=== PATIENT | female | born 2000 | race Caucasian/White ===

== ENCOUNTER 2020-04-24 12:24 | Emergency (ER) | payer MEDICAID, SELFPAY ==
[2020-04-24 12:31] VITALS: BP 160/104; PULSE 121; RESP 20; TEMP 36.9; O2SAT 99; BMI 40.6
--- NOTE | 2020-04-24 12:52 | ED_ITS ---
HPI - Abdominal Pain General: Chief Complaint: Abdominal Pain Stated Complaint: stomach pains Time Seen by Provider: 04/24/20 12:31 History of Present Illness: HPI narrative: 19-year-old female comes in complaining of abdominal pain x3 weeks. She has pain in left upper quadrant left side of her abdomen radiating down to the suprapubic area. There is a potential that she is she is several weeks late for her period and is has regular unprotected intercourse. She denies dysuria urgency or frequency is no fever she denies hematuria she has been moderately nauseous with this as well. Patient is G1, P0 SAB 1 MD elicited complaint: flank pain Pertinent past history: none Onset (ago): week(s) (3) Pain Consistency: intermittent Location: L flank Severity: moderate Quality: cramping and stabbing Radiation: suprapubic Migration to: suprapubic Exacerbating factors: nothing Relieving factors: nothing Associated Symptoms: Reports no associated symptoms and GI cramping; Denies anorexia, belching, bloating, change in bowel habits, change in stool character, chills, coffee ground emesis, constipation, diarrhea, dyspepsia, dysuria, excessive flatus, fever(s), heartburn, hematochezia, hematuria, hematemesis, fecal incontinence, loose stools, melena, nausea, poor appetite, syncope and vomiting Related Data: Date of Last Menstrual Period: 02/21/20 Review of Systems Const: Denies: fever(s) or chills ENMT: Denies: throat pain, ear or mastoid pain, nasal discharge or nasal congestion Card: Denies: syncope Resp: Denies: dyspnea, productive cough or non-productive cough GI: Reports: GI cramping; Denies: nausea, vomiting, hematemesis, coffee ground emesis, heartburn, diarrhea, constipation, bloating, belching, excessive flatus, fecal incontinence, change in bowel habits, change in stool character, hematochezia or melena : Denies: dysuria or hematuria Skin/Breast: Denies: rash or pruritus PFSH ED PFSH: Medical History (Updated 04/24/20 @ 12:57 by Abdi Fuentes DO) Strabismus Surgical History (Updated 04/24/20 @ 12:57 by Abdi Fuentes DO) History of elective History of tonsillectomy and adenoidectomy [place] teeth extracted Social History (Updated 04/24/20 @ 12:57 by Abdi Fuentes DO) Smoking and tobacco status: current every day smoker Substance/Drug Use: current Substance/Drug use frequency: daily Substance/Drug use type: Marijuana Female Reproductive History: Date of last menstrual period: 02/21/20 Physical Exam Const: COMMON NORMALS: no acute distress GENERAL APPEARANCE: cooperative and comfortable ORIENTATION/CONSCIOUSNESS: Yes awake, Yes oriented to person, Yes oriented to place and Yes oriented to time HENMT: COMMON NORMALS: normocephalic, atraumatic, hearing grossly normal bilaterally, external ears normal, EAC's normal, TM's normal bilaterally, Normal nasal mucous membranes and turbinates present, moist oral mucous membranes and oropharynx normal HEAD & SCALP: normocephalic and atraumatic NOSE: Normal nasal mucous membranes and turbinates present EXTERNAL EAR: Yes external ears normal EXTERNAL AUDITORY CANAL: EAC's normal TYMPANIC MEMBRANE: TM's normal bilaterally Eye: COMMON NORMALS: Equal, round and reactive pupils present, EOMs intact bilaterally, conjunctivae normal and no scleral icterus CONJUNCTIVA: Yes conjunctivae normal PUPIL: Yes Equal, round and reactive pupils present Neck/C-Spine: COMMON NORMALS: full ROM, no lymphadenopathy, supple and no JVD Lymph: LYMPHATIC: no lymphadenopathy noted and no lymphedema noted Resp: COMMON NORMALS: normal respiratory effort, No retractions, No use of accessory muscles and clear to auscultation bilaterally AUSCULTATION: clear to auscultation bilaterally Cardio: COMMON NORMALS: no JVD, regular rate, regular rhythm and No murmurs present (Cardio) RATE: regular rate RHYTHM: regular rhythm GI: PALPATION: Yes Tenderness to palpation present (GI) Details: LUQ and No Guarding due to palpation present (GI) Extremity: COMMON NORMALS: normal to inspection, capillary refill normal, no clubbing, cyanosis or edema, no calf tenderness and no pedal edema Neuro: SENSORIUM/ORIENTATION: Yes oriented to person, Yes oriented to place and Yes oriented to time Skin: COMMON NORMALS: no rashes or lesions noted GENERAL SKIN EXAM: no rashes or lesions noted Course Vital Signs: Vital signs: Vital Signs Temperature 98.5 F 04/24/20 12:31 Pulse Rate 121 H 04/24/20 12:31 Respiratory Rate 20 H 04/24/20 12:31 Blood Pressure 160/104 04/24/20 12:31 Pulse Oximetry 99 04/24/20 12:31 MDM - Abdominal Pain MDM Narrative: Medical decision making narrative: Patient refused further exam and evaluation. Beta-hCG was negative and will reset to have a CT done given her elevated white count and her other symptoms. She adamantly refused stating that she was very anxious and wanted to leave. Offered her antianxiety medications discussed with her that we could not be entirely sure what was wrong and recommended that she stay until we get further testing completed. She is adamant about leaving. Despite offers for the anxiety medication she still decided leave AMA discussed with her that since we were not sure what exactly was causing her symptoms we could not be sure that they were not something more serious. She acknowledges that and still wishes to leave. Advised her she was welcome to return at any point if she changed her mind. Lab Data: Labs: Lab Results 04/24/20 04/24/20 04/24/20 Range/Units 12:44 12:44 13:10 WBC 14.0 H (4.5-13.0) 10^3/ uL RBC 5.68 H (4.1-5.3) 10^6/u L Hgb 13.7 (11.5-15.3) g/dL Hct 42.6 (37.0-47.0) % MCV 75.0 L (81-99) fL MCH 24.1 L (28.0-34.0) pg MCHC 32.2 (30.0-36.0) g/dL RDW 14.6 (12.1-15.1) % Plt Count 466 H (130-400) 10^3/c mm MPV 9.6 (7.4-10.4) fL Neut % (Auto) 67.5 % Lymph % (Auto) 21.6 % [place] % (Auto) 6.9 % Eos % (Auto) 3.2 % Baso % (Auto) 0.4 % Neut # (Auto) 9.41 H (1.8-8.0) 10^3/u L Lymph # (Auto) 3.0 (1.5-6.5) 10^3/u L [place] # (Auto) 1.0 H (0.2-0.9) 10^3/u L Eos # (Auto) 0.5 (0.0-0.8) 10^3/u L Baso # (Auto) 0.1 (0.0-0.1) 10^3/u L Nucleated RBC % (a uto) 0 % Nucleated RBCs # 0.0 /100WBC Sodium (136-145) mmol/L Potassium (3.5-5.1) mmol/L Chloride (98-107) mmol/L Carbon Dioxide (22-29) mmol/L Anion Gap (5-19) BUN (6-20) mg/dL Creatinine (0.5-0.9) mg/dL GFR Calculation (90-130) mL/min Glucose (65-115) mg/dL Calculated Osmolal ity (285-295) mOsm/k g Calcium (8.5-10.5) mg/dL Total Bilirubin (0.15-1.2) mg/dL AST (0-32) U/L ALT (0-33) U/L Alkaline Phosphata se (35-105) IU/L Total Protein (6.6-8.7) g/dL Albumin (3.5-5.2) g/dL Globulin (1.3-4.6) g/dL Lipase (13-60) U/L HCG, Qual Negative (Negative) Urine Color Yellow (Yellow) Urine Appearance Clear (CLEAR) Urine pH 5 (5-7) Ur Specific Gravit y 1.020 (1.005-1.030) Urine Protein Neg (Negative) Urine Glucose (UA) Norm (Normal) Urine Ketones Negative (Negative) Urine Blood Neg (Negative) Urine Nitrate Negative (Negative) Urine Bilirubin Neg (Negative) Urine Urobilinogen Norm (Negative) mg/dL Ur Leukocyte Renetta ase Negative (Negative) 04/24/20 Range/Units 13:10 WBC (4.5-13.0) 10^3/ uL RBC (4.1-5.3) 10^6/u L Hgb (11.5-15.3) g/dL Hct (37.0-47.0) % MCV (81-99) fL MCH (28.0-34.0) pg MCHC (30.0-36.0) g/dL RDW (12.1-15.1) % Plt Count (130-400) 10^3/c mm MPV (7.4-10.4) fL Neut % (Auto) % Lymph % (Auto) % [place] % (Auto) % Eos % (Auto) % Baso % (Auto) % Neut # (Auto) (1.8-8.0) 10^3/u L Lymph # (Auto) (1.5-6.5) 10^3/u L [place] # (Auto) (0.2-0.9) 10^3/u L Eos # (Auto) (0.0-0.8) 10^3/u L Baso # (Auto) (0.0-0.1) 10^3/u L Nucleated RBC % (a uto) % Nucleated RBCs # /100WBC Sodium 134 L (136-145) mmol/L Potassium 4.1 (3.5-5.1) mmol/L Chloride 103 (98-107) mmol/L Carbon Dioxide 19 L (22-29) mmol/L Anion Gap 16.1 (5-19) BUN 6 (6-20) mg/dL Creatinine 0.5 (0.5-0.9) mg/dL GFR Calculation 158.9 H (90-130) mL/min Glucose 108 (65-115) mg/dL Calculated Osmolal ity 276 L (285-295) mOsm/k g Calcium 9.3 (8.5-10.5) mg/dL Total Bilirubin 0.2 (0.15-1.2) mg/dL AST 18 (0-32) U/L ALT 24 (0-33) U/L Alkaline Phosphata se 111 H (35-105) IU/L Total Protein 7.6 (6.6-8.7) g/dL Albumin 4.4 (3.5-5.2) g/dL Globulin 3.2 (1.3-4.6) g/dL Lipase 12 L (13-60) U/L HCG, Qual (Negative) Urine Color (Yellow) Urine Appearance (CLEAR) Urine pH (5-7) Ur Specific Gravit y (1.005-1.030) Urine Protein (Negative) Urine Glucose (UA) (Normal) Urine Ketones (Negative) Urine Blood (Negative) Urine Nitrate (Negative) Urine Bilirubin (Negative) Urine Urobilinogen (Negative) mg/dL Ur Leukocyte Renetta ase (Negative) Discharge Plan Discharge Patient Disposition: Left Against Medical Advice Prescriptions: No Action Tylenol 325 mg Tablet 325 mg PO QID PRN (Reason: FEVER/PAIN) RF: 0 ibuprofen 200 mg Tablet 200 - 400 mg PO Q6H PRN (Reason: PAIN/FEVER) RF: 0 Discharge Date/Time: 04/24/20 13:28 Coding Level of Care Code 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
[2020-04-24 12:53] LABS: Add Urine Microscopic? NO
[2020-04-24 12:58] LABS: HCG Qualitative Urine. Negative (Negative)
[2020-04-24 12:59] LABS: Bilirubin Urine Neg (Negative); Blood Urine Neg (Negative); Glucose Urine UA Norm (Normal); Ketones Urine Negative (Negative); Leukocyte Esterase Urine Negative (Negative); Nitrate Urine Negative (Negative); Protein Urine Neg (Negative); Urine Appearance Clear (CLEAR); Urine Color Yellow (Yellow); Urobilinogen Urine Norm (Negative); pH Urine 5 (5-7)
[2020-04-24] MEDS: ondansetron 2 mg/ML SDV 2 mL 4 MG IVP (13:11)
[2020-04-24] MEDS: sodium chlor 0.9% + KCl 20 mEq 20 MEQ/1,000 ML BAG 125 MEQ IV (13:12)
[2020-04-24 13:17] LABS: Basophils # 0.1 10^3/uL (0.0-0.1); Basophils % 0.4 %; Eosinophils # 0.5 10^3/uL (0.0-0.8); Eosinophils % 3.2 %; Hematocrit 42.6 % (37.0-47.0); Hemoglobin 13.7 g/dL (11.5-15.3); Lymphocytes % 21.6 %; Mean Corpuscular HGB Conc 32.2 g/dL (30.0-36.0); Mean Corpuscular Hemoglobin 24.1 pg (28.0-34.0); Mean Platelet Volume 9.6 fL (7.4-10.4); Monocytes % 6.9 %; Neutrophils # 9.41 10^3/uL (1.8-8.0); Neutrophils % 67.5 %; Nucleated Red Blood Cells % 0 %; Platelet Count 466 10^3/cmm (130-400); Red Blood Count 5.68 10^6/uL (4.1-5.3); Red Cell Distribution Width 14.6 % (12.1-15.1)
[2020-04-24 13:35] LABS: Alanine Aminotransferase 24 U/L (0-33); Albumin Level 4.4 g/dL (3.5-5.2); Alkaline Phosphatase 111 IU/L (35-105); Anion Gap 16.1 (5-19); Aspartate Amino Transferase 18 U/L (0-32); Blood Urea Nitrogen 6 mg/dL (6-20); Calcium 9.3 mg/dL (8.5-10.5); Carbon Dioxide 19 mmol/L (22-29); Chloride 103 mmol/L (98-107); Globulin 3.2 g/dL (1.3-4.6); Glomerular Filtration Rate 158.9 mL/min (90-130); Glucose 108 mg/dL (65-115); Lipase 12 U/L (13-60); Osmolality Calculated 276 mOsm/kg (285-295); Potassium 4.1 mmol/L (3.5-5.1); Sodium 134 mmol/L (136-145); Total Bilirubin 0.2 mg/dL (0.15-1.2); Total Protein 7.6 g/dL (6.6-8.7)
== END 2020-04-24 13:28 | disposition left against medical advice (07) ==
PROVIDERS: Emergency Provider Family Medicine
DX: R10.9 Unspecified abdominal pain (principal); Z53.21 Procedure and treatment not carried out due to patient leaving prior to being seen by health care provider; F17.210 Nicotine dependence, cigarettes, uncomplicated
CPT/HCPCS: 12345; 80053; 81003; 81025; 83690; 85025; 96365; 96375; 99282; 99283; J2405

== ENCOUNTER 2020-10-19 12:21 | Outpatient (CLI) | payer MEDICAID, SELFPAY ==
--- NOTE | 2020-10-19 12:31 | XR_ITS ---
WS: [id number] XR chest 2V* [id number] REASON FOR EXAM: R07.89 - Other chest pain FINDINGS: The chest is unchanged compared to previous examination of 09/04/2015. The heart and mediastinum are within normal limits. No active pulmonary parenchymal or pleural disease noted. No significant abnormality of the bony thorax. XR/XR chest 2V* [id number] IMPRESSION: No significant abnormality of the chest.
[2020-10-19 13:08] LABS: Basophils % 0.4 %; Eosinophils # 0.4 10^3/uL (0.0-0.8); Eosinophils % 3.4 %; Hematocrit 42.5 % (37.0-47.0); Hemoglobin 13.4 g/dL (11.5-15.3); Lymphocytes # 2.6 10^3/uL (1.5-6.5); Lymphocytes % 24.1 %; Mean Corpuscular HGB Conc 31.5 g/dL (30.0-36.0); Mean Corpuscular Hemoglobin 23.8 pg (28.0-34.0); Mean Corpuscular Volume 75.6 fL (81-99); Mean Platelet Volume 9.9 fL (7.4-10.4); Monocytes # 0.8 10^3/uL (0.2-0.9); Monocytes % 7.6 %; Neutrophils # 6.87 10^3/uL (1.8-8.0); Neutrophils % 64.2 %; Nucleated Red Blood Cells % 0 %; Platelet Count 467 10^3/cmm (130-400); Red Blood Count 5.62 10^6/uL (4.1-5.3); Red Cell Distribution Width 14.9 % (12.1-15.1); White Blood Count 10.7 10^3/uL (4.5-13.0)
[2020-10-19 13:30] LABS: Alanine Aminotransferase 17 U/L (0-33); Albumin Level 4.5 g/dL (3.5-5.2); Alkaline Phosphatase 104 IU/L (35-105); Aspartate Amino Transferase 15 U/L (0-32); Blood Urea Nitrogen 7 mg/dL (6-20); Calcium 9.6 mg/dL (8.5-10.5); Carbon Dioxide 23 mmol/L (22-29); Chloride 105 mmol/L (98-107); Globulin 3.1 g/dL (1.3-4.6); Glomerular Filtration Rate 203.5 mL/min (90-130); Glucose 113 mg/dL (65-115); Osmolality Calculated 287 mOsm/kg (285-295); Sodium 139 mmol/L (136-145); Total Bilirubin 0.2 mg/dL (0.15-1.2); Total Protein 7.6 g/dL (6.6-8.7)
[2020-10-19 13:44] LABS: D Dimer <= 0.27 ug/mIFEU (0-0.59)
== END 2020-10-19 12:22 | disposition home or self-care (01) ==
PROVIDERS: Visit Provider Nurse Practitioner Family
DX: R07.89 Other chest pain (principal); R05 Cough
CPT/HCPCS: 36415; 71046; 80053; 85025; 85378

== ENCOUNTER → 2020-10-25 08:06 | Outpatient (BNVA) | payer MEDICAID, SELFPAY | PROVIDERS: Visit Provider Nurse Practitioner Family | DX: R05 Cough (principal); R07.89 Other chest pain | CPT/HCPCS: 80053; 85025; 85379 ==

== ENCOUNTER → 2020-12-29 16:27 | Outpatient (BNVA) | payer MEDICAID, SELFPAY | PROVIDERS: Visit Provider Nurse Practitioner Family | DX: G47.9 Sleep disorder, unspecified (principal); N92.6 Irregular menstruation, unspecified | CPT/HCPCS: 81025 ==

== ENCOUNTER 2021-07-23 06:55 | Outpatient (CLI) | payer MEDICAID, SELFPAY ==
--- NOTE | 2021-07-23 07:08 | US_ITS ---
WS: [id number] ULTRASOUND PELVIS TECHNIQUE: Transvaginal. CLINICAL INFORMATION: IRREGULAR MENSES LMP: : No. COMPARISON: None. FINDINGS: Uterus Orientation: Anteverted. Size: 7.5 x 2.7 x 4.1 Masses: None. Cervix: Trace fluid Endometrium: Normal. Endometrium thickness: 3.9 mm. Adnexa: Multifollicular ovaries bilaterally Right ovary size: 3.7 x 3.7 x 1.7 cm. Left ovary size: 3.3 x 2.5 x 3.4 cm. Free fluid: Trace Other findings: None. US/US transvaginal [id number] IMPRESSION: 1. Normal uterus with normal endometrium measuring 3.9 mm. 2. Multifollicular ovaries bilaterally nonspecific. Right ovarian volume 12.3 cc and left ovarian volume 15.6 cc. Findings can be seen with PCOS in the appro priate clinical setting. 3. Trace fluid about each ovary and in the cul-de-sac. 4. Small amount of fluid in the cervix.
== END 2021-07-23 06:56 | disposition home or self-care (01) ==
LOC: RAD 06:58
PROVIDERS: PCP Pediatrics; Visit Provider Family Medicine
DX: N92.6 Irregular menstruation, unspecified (principal)
CPT/HCPCS: 76830

== ENCOUNTER 2022-11-02 04:32 | Emergency (ER) | payer MEDICAID, SELFPAY ==
[2022-11-02 04:41] VITALS: BP 142/75; PULSE 94; RESP 22; TEMP 36.9; O2SAT 99; BMI 45.3
--- NOTE | 2022-11-02 04:49 | ECG_ITS ---
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 Measurements Intervals [place] Rate: 92 P: 44 AL: 175 QRS: -20 QRSD: 126 T: 19 QT: 357 QTc: 442 Interpretive Statements SINUS RHYTHM RIGHT BUNDLE BRANCH BLOCK [120+ ms QRS DURATION, UPRIGHT V1, 40+ ms S IN I/aVL/V4/V5/V6] INTERPRETATION BASED ON A DEFAULT AGE OF 40 YEARS Compared to ECG 09/04/2015 17:23:31 Sinus tachycardia no longer present Electronically Signed On 11-02-2022 7:12:13 CDT by Chacorta Perkins M.D. [id number]
--- NOTE | 2022-11-02 04:53 | XRR_ITS ---
PROCEDURE INFORMATION: Exam: XR Chest Exam date and time: 11/02/2022 5:05 AM Age: 22 years old Clinical indication: Pain; Chest pressure; Additional info: Cp TECHNIQUE: Imaging protocol: Radiologic exam of the chest. Views: 1 view. COMPARISON: CR XR chest 2V* [id number] 10/19/2020 12:42 PM FINDINGS: Lungs: No consolidation. Pleural spaces: No pleural effusion. No pneumothorax. Heart/Mediastinum: Heart size is at the upper limits of normal. Bones/joints: No acute fracture. XR/XR chest 1V portable [id number] IMPRESSION: No acute cardiopulmonary findings.
[2022-11-02 05:15] LABS: Basophils # 0.1 10^3/uL (0.0-0.1); Basophils % 0.5 %; Eosinophils # 0.5 10^3/uL (0.0-0.8); Hematocrit 43.9 % (37.0-47.0); Hemoglobin 14.1 g/dL (11.5-15.3); Lymphocytes % 28.4 %; Mean Corpuscular HGB Conc 32.1 g/dL (30.0-36.0); Mean Corpuscular Hemoglobin 24.3 pg (28.0-34.0); Mean Corpuscular Volume 75.7 fl (81-99); Mean Platelet Volume 10.2 fL (7.4-10.4); Monocytes # 1.5 10^3/uL (0.2-0.9); Monocytes % 8.4 %; Neutrophils # 10.44 10^3/uL (1.8-7.7); Neutrophils % 59.4 %; Nucleated Red Blood Cells % 0 %; Platelet Count 478 10^3/cmm (130-400); Red Cell Distribution Width 14.4 % (12.1-15.1); White Blood Count 17.6 10^3/uL (4.0-10.0)
[2022-11-02 05:18] LABS: D Dimer 0.28 ug/mIFEU (0-0.59)
--- NOTE | 2022-11-02 05:20 | W.ED.ANXIETY ---
HPI - Anxiety General: Chief Complaint: Anxiety Stated Complaint: chest and right shoulder pain, sob Time Seen by Provider: 11/02/22 04:47 History of Present Illness: 22-year-old with chronic right shoulder pain after an injury last year. She woke with it hurting. This progressed to right-sided then bilateral chest discomfort. She says it hurts to exhale. She feels like she cannot get a good breath in or out. She went and took a bath, and symptoms of the chest seem to get worse. She tried to call out for her but could not because she could not catch enough breath. She says that since this is happened, she has developed a cough, but was not coughing prior. No long car trips. No fever. MD complaint: anxiety and shortness of breath Onset (ago): hour(s) Symptoms: chest pain Severity: moderate Quality: constant Place: home History of similar episodes: No Provoking factors: none known Relieving factors: nothing Exacerbating factors: thinking about event Associated symptoms: Reports chest pain, diaphoresis, headache(s), nausea, short of breath and vomiting; Deny chills, confusion or fever(s) Review of Systems Const: Reports: diaphoresis; Denies: fever(s) or chills ENMT: Denies: throat pain Card: Reports: chest pain Resp: Reports: dyspnea and non-productive cough GI: Reports: nausea and vomiting; Denies: abdominal pain : Denies: flank pain Neuro: Reports: headache(s); Denies: confusion Psych: Reports: anxiety PFS ED PFSH: Medical History Strabismus Surgical History History of elective History of tonsillectomy and adenoidectomy [place] teeth extracted Social History Smoking and tobacco status: current every day smoker Physical Exam Const: COMMON NORMALS: patient oriented x3, alert and well nourished GENERAL APPEARANCE: cooperative, in distress and anxious; not ill appearing NUTRITIONAL APPEARANCE: obese HENMT: COMMON NORMALS: normocephalic, atraumatic and Normal external nose present HEAD & SCALP: normocephalic and atraumatic FACE & SINUS: normal facial exam and face symmetric NOSE: Normal external nose present Eye: COMMON NORMALS: Equal, round and reactive pupils present and EOMs intact bilaterally PUPIL: Yes Equal, round and reactive pupils present Neck/C-Spine: COMMON NORMALS: full ROM GENERAL: Yes trachea midline Chest: CHEST: Yes Symmetrical chest wall rise and Yes tenderness (anterior bilateral) Resp: COMMON NORMALS: normal respiratory effort, No retractions, No use of accessory muscles and clear to auscultation bilaterally AUSCULTATION: clear to auscultation bilaterally Cardio: COMMON NORMALS: regular rate, regular rhythm, S1 normal heart sound present and S2 normal heart sound present RATE: regular rate RHYTHM: regular rhythm HEART SOUNDS: S1 normal heart sound present and S2 normal heart sound present GI: COMMON NORMALS: Normal to inspection, nondistended, normoactive bowel sounds present Back/Pelvis: LUMBAR SPINE/LOWER BACK: Yes normal to inspection, Yes pain with ROM and Yes paraspinal muscle tenderness Lumbar paraspinal muscle tenderness: bilateral Extremity: COMMON NORMALS: normal to inspection, full ROM, no clubbing, cyanosis or edema and no calf tenderness Neuro: [place] COMA SCALE: document GCS findings [place] coma scale eye opening: Spontaneous [place] coma scale verbal response: Orientated [place] coma scale motor response: [place] commands [place] coma scale total score: 15 COMMON NORMALS: patient oriented x3 SENSORIUM/ORIENTATION: Yes alert GAIT: Yes Antalgic gait present (slow) SENSORY EXAM: Yes extremities (intact) Psych: COMMON NORMALS: speech normal SPEECH: Yes normal speech MOOD & AFFECT: Yes tearful Skin: COMMON NORMALS: no rashes or lesions noted GENERAL SKIN EXAM: no rashes or lesions noted Course Vital Signs: Vital signs: Vital Signs Temperature 98.5 F 11/02/22 04:41 Pulse Rate 94 11/02/22 04:41 Respiratory Rate 22 H 11/02/22 04:41 Blood Pressure 142/75 11/02/22 04:41 Pulse Oximetry 99 11/02/22 04:41 MDM - Anxiety Medical Decision Making Patient is very anxious on exam. She is given morphine for pain, and Haldol for nausea and anxiety. This is improved. Chest x-ray is negative. White blood cell count is 17.6, but with only 59% neutrophils. D-dimer is negative. Other laboratories pending. The patient's EKG shows a sinus rhythm. [place] is normal. There is a right bundle branch block. No ST changes. Rate is 90. No other interval abnormalities. Her troponin is negative. Other laboratory is normal. The patient received morphine and haloperidol for pain and nausea. She now states that her pain is gone. Her shortness of breath is resolved. She states I am hot, and I want to go home and sleep in my own bed . Given her laboratory findings, this is most likely an anxiety event. We will allow her home. Lab Data 11/02/22 04:57 11/02/22 04:57 Radiology Impressions Chest X-Ray 11/02/22 04:53 IMPRESSION: No acute cardiopulmonary findings. Laboratory Results WBC 17.6 10^3/uL (4.0-10.0) H 11/02/22 04:57 RBC 5.80 10^6/uL (4.1-5.3) H 11/02/22 04:57 Hgb 14.1 g/dL (11.5-15.3) 11/02/22 04:57 Hct 43.9 % (37.0-47.0) 11/02/22 04:57 MCV 75.7 fl (81-99) L 11/02/22 04:57 MCH 24.3 pg (28.0-34.0) L 11/02/22 04:57 MCHC 32.1 g/dL (30.0-36.0) 11/02/22 04:57 RDW 14.4 % (12.1-15.1) 11/02/22 04:57 Plt Count 478 10^3/cmm (130-400) H 11/02/22 04:57 MPV 10.2 fL (7.4-10.4) 11/02/22 04:57 Neut % (Auto) 59.4 % 11/02/22 04:57 Lymph % (Auto) 28.4 % 11/02/22 04:57 [place] % (Auto) 8.4 % 11/02/22 04:57 Eos % (Auto) 3.0 % 11/02/22 04:57 Baso % (Auto) 0.5 % 11/02/22 04:57 Neut # (Auto) 10.44 10^3/uL (1.8-7.7) H 11/02/22 04:57 Lymph # (Auto) 5.0 10^3/uL (0.8-4.8) H 11/02/22 04:57 [place] # (Auto) 1.5 10^3/uL (0.2-0.9) H 11/02/22 04:57 Eos # (Auto) 0.5 10^3/uL (0.0-0.8) 11/02/22 04:57 Baso # (Auto) 0.1 10^3/uL (0.0-0.1) 11/02/22 04:57 Nucleated RBC % (auto) 0 % 11/02/22 04:57 Nucleated RBCs # 0.0 /100WBC 11/02/22 04:57 D-Dimer 0.28 ug/mIFEU (0-0.59) 11/02/22 04:57 Sodium 136 mmol/L (136-145) 11/02/22 04:57 Potassium 4.0 mmol/L (3.5-5.1) 11/02/22 04:57 Chloride 105 mmol/L (98-107) 11/02/22 04:57 Anion Gap 17.0 (5-19) 11/02/22 04:57 BUN 8 mg/dL (6-20) 11/02/22 04:57 Creatinine 0.5 mg/dL (0.5-0.9) 11/02/22 04:57 Glucose 97 mg/dL (65-115) 11/02/22 04:57 Calcium 9.3 mg/dL (8.5-10.5) 11/02/22 04:57 Total Bilirubin 0.3 mg/dL (0.15-1.2) 11/02/22 04:57 AST 14 U/L (0-32) 11/02/22 04:57 ALT 16 U/L (0-33) 11/02/22 04:57 Alkaline Phosphatase 86 U/L (35-105) 11/02/22 04:57 Troponin T Gen 5 ng/L 6 ng/L (0-10) 11/02/22 04:57 NT-Pro-B Natriuret Pep 36 pg/mL (0-125) 11/02/22 04:57 Total Protein 7.0 g/dL (6.6-8.7) 11/02/22 04:57 Albumin 4.4 g/dL (3.5-5.2) 11/02/22 04:57 Globulin 2.6 g/dL (1.3-4.6) 11/02/22 04:57 Discharge Plan Discharge Patient Disposition: Home Clinical Impression: Chest pain, Hyperventilation Condition: Stable Prescriptions: No Action diclofenac potassium 50 mg tablet 50 mg PO BID PRN (Reason: pain) Qty: 10 0RF Tylenol 325 mg Tablet 325 mg PO QID PRN (Reason: FEVER/PAIN) Discharge Orders: Discharge ED (Routine); Ordered 11/02/22 Ordered By: Ovidio Dennis Patient Instructions: Chest Pain (ED), Opioid Safety, Pain Management Activity Restrictions/Additional Instructions: Return for worsening chest discomfort, shortness of breath, any other concerning symptoms. 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
[2022-11-02] MEDS: haloperidol inj 5 mg/mL INJ 1 mL 3 MG IVP (05:27)
[2022-11-02] MEDS: morphine 4 mg/mL SDV 1 mL IVP (05:27)
[2022-11-02 05:31] LABS: Troponin T (5th) Once 6 ng/L (0-10)
[2022-11-02 05:43] LABS: Alanine Aminotransferase 16 U/L (0-33); Albumin Level 4.4 g/dL (3.5-5.2); Alkaline Phosphatase 86 U/L (35-105); Aspartate Amino Transferase 14 U/L (0-32); Blood Urea Nitrogen 8 mg/dL (6-20); Calcium 9.3 mg/dL (8.5-10.5); Carbon Dioxide 18 mmol/L (22-29); Chloride 105 mmol/L (98-107); Globulin 2.6 g/dL (1.3-4.6); Glomerular Filtration Rate 154.3 mL/min (90-130); Glucose 97 mg/dL (65-115); NT Pro B Type Natriuretic Pept 36 pg/mL (0-125); Osmolality Calculated 280 mOsm/kg (285-295); Sodium 136 mmol/L (136-145); Total Bilirubin 0.3 mg/dL (0.15-1.2)
[2022-11-02 06:06] VITALS: BP 147/88; PULSE 92; RESP 16
--- NOTE | 2022-11-12 15:14 | DCPLANNER ---
Patient was called due to no primary care physician - phone number is no longer in service
== END 2022-11-02 06:12 | disposition home or self-care (01) ==
PROVIDERS: Emergency Provider Emergency Medicine
DX: R06.4 Hyperventilation (principal); R07.9 Chest pain, unspecified; F17.210 Nicotine dependence, cigarettes, uncomplicated
CPT/HCPCS: 71045; 80053; 83880; 84484; 85025; 85378; 93005; 96374; 96375; 99285; J1630; J2270

== ENCOUNTER 2024-09-05 09:59 | Emergency (ER) | payer MEDICAID, SELFPAY ==
[2024-09-05 10:08] VITALS: BP 130/92; PULSE 91; RESP 18; TEMP 37.3; O2SAT 98
--- NOTE | 2024-09-05 10:09 | W.ED.NAVMDI ---
HPI - Nausea/Vomiting/Diarrhea General: Chief complaint: Fever Stated complaint: fever; flu a+ Time Seen by Provider: 09/05/24 10:02 History of Present Illness: 24-year-old female who was diagnosed with influenza yesterday who presents emergency room by ambulance with intractable nausea and vomiting. She received Phenergan and normal saline en route. EMS reports her heart rate was elevated in the 120s at her mouth. Dry so they gave her fluids. Heart rate has come down now. Nausea has improved some. She said she was given Tamiflu when she throws up every time she takes it. Says initially this started with a migraine. She had some cough. Fevers. No focal abdominal pain. Related Data Home Medications Medication Instructions Recorded Confirmed acetaminophen 325 mg tablet 325 mg PO QID PRN FEVER/PAIN 04/24/20 12/29/20 (Tylenol) Previous Rx's Medication Instructions Recorded diclofenac potassium 50 mg tablet 50 mg PO BID PRN pain #10 tabs 08/06/22 diclofenac sodium 50 mg 50 mg PO BID PRN pain #14 tabs 09/05/24 tablet,delayed release ondansetron 8 mg disintegrating 8 mg PO Q6H #14 tabs 09/05/24 tablet Allergies Allergy/AdvReac Type Severity Reaction Status Date / Time Fish Containing Products Allergy ALGY-Swell Verified 08/06/22 11:08 Lip/Tongue/Throat iodine Allergy ALGY-Anaphy Verified 08/06/22 11:57 laxis Review of Systems Narrative: Constitutional symptoms: Negative except as documented in HPI. Skin symptoms: Negative except as documented in HPI. Eye symptoms: Negative except as documented in HPI. ENMT symptoms: Negative except as documented in HPI. Respiratory symptoms: Negative except as documented in HPI. Cardiovascular symptoms: Negative except as documented in HPI. Gastrointestinal symptoms: Negative except as documented in HPI. Genitourinary symptoms: Negative except as documented in HPI. Musculoskeletal symptoms: Negative except as documented in HPI. Neurologic symptoms: Negative except as documented in HPI. Psychiatric symptoms: Negative except as documented in HPI. Endocrine symptoms: Negative except as documented in HPI. [facility] ED PFSH: Medical History Strabismus Surgical History History of elective History of tonsillectomy and adenoidectomy [place] teeth extracted Family History (Updated 05/12/23 @ 12:49 by Garrick Morel) Denies family history of Colon cancer Ovarian cancer Diabetes Heart disease Hyperlipidemia Breast cancer Hypertension Uterine cancer Thyroid disease Stroke Social History Smoking and tobacco/nicotine status: current every day tobacco/nicotine user Substance/Drug Use: current Substance/Drug use frequency: daily Physical Exam Narrative: EXAM NARRATIVE: General: Alert, no acute distress. Skin: Warm, dry. Head: Normocephalic, atraumatic. Neck: Supple, trachea midline. Eye: Extraocular movements are intact. Ears, nose, mouth and throat: mucosa moist. Cardiovascular: Regular, Normal peripheral perfusion. Respiratory: Lungs are clear to auscultation, respirations are non-labored, breath sounds are equal, Symmetrical chest wall expansion. Gastrointestinal: Soft, Nontender, Non distended Musculoskeletal: Normal ROM, no deformity. Neurological: Alert and oriented, No focal neurological deficit observed. Psychiatric: Cooperative, appropriate mood & affect. MDM - Nausea/Vomiting/Diarrhea Medical Decision Making Assessment and plan: Influenza A Dehydration Vomiting ? Normal saline and Phenergan in the ambulance. Zofran and Toradol in the emergency room. - Discharged home - Discussed plan with patient. Answered any questions. - Evaluation and treatment of this problem were appropriate in the emergency setting. No radiology studies performed this visit Discharge Plan Discharge Patient Disposition: Home Clinical Impression: Influenza A Condition: Stable Prescriptions: New ondansetron 8 mg tablet,disintegrating 8 mg PO Q6H Qty: 14 0RF Rx Instructions: Take 1/2-1 tab every 6 hours as needed for nausea and vomiting diclofenac sodium 50 mg tablet,delayed release (DR/EC) 50 mg PO BID PRN (Reason: pain) Qty: 14 0RF No Action diclofenac potassium 50 mg tablet 50 mg PO BID PRN (Reason: pain) Qty: 10 0RF Tylenol 325 mg Tablet 325 mg PO QID PRN (Reason: FEVER/PAIN) Discharge Orders: Discharge ED (Routine); Ordered 09/05/24 Ordered By: Felicia Walters Referrals: Colette Becker, CARDIOVASCULAR DISEASE SPECIALIST-C [Primary Care Provider] - Discharge Diet: Advance as tolerated Discharge Activity: Increase activity as tolerated Patient Instructions: Influenza (ED), Opioid Safety, Pain Management Activity Restrictions/Additional Instructions: Thank you for choosing [facility] for your healthcare needs today. Please realize this is an emergency room and that we are providing you with a medical screening exam and this may not be complete and all inclusive of all the testing and or work up that you may need to determine your ailment or severity of your illness. You have been screened and evaluated and felt safe for discharge. Health conditions do change or evolve sometimes and as such it is important that you follow up with your Primary Doctor to be re checked, 3-5 days is a general good time frame for follow up. You are always welcome to return to the ED for re assessment if your symptoms are worsening or you have new concerns Coding Level of Care Code ED [employer] Director for Jarad Alexandre
[2024-09-05] MEDS: ondansetron 2 mg/ML SDV 2 mL 8 MG IVP (10:21)
[2024-09-05] MEDS: ketorolac 30 mg/mL INJ IVP (10:22)
[2024-09-05 10:39] VITALS: BP 116/69; PULSE 96; TEMP 38.1; O2SAT 98
== END 2024-09-05 10:39 | disposition home or self-care (01) ==
PROVIDERS: Emergency Provider Emergency Medicine; PCP Nurse Practitioner
DX: J10.1 Influenza due to other identified influenza virus with other respiratory manifestations (principal); Z72.0 Tobacco use
CPT/HCPCS: 96374; 96375; 99284; J1885; J2405